=== PATIENT | female | born 1960 | race Caucasian/White ===

== ENCOUNTER 2019-08-25 09:02 | Emergency (ER) | payer BC ==
[~2019-08-25] VITALS: Ht 170.2 cm; Wt 60.0 kg
[~2019-08-25 09:02] MED LIST: ACID1TAB7 PO; LOPE-114 PO; NICO-487 TD
--- NOTE | 2019-08-25 09:20 | NUR ---
PT AMBULATORY WITH SBA TO ROOM FROM AMBULANCE BAY. ALL BELONGINGS REMOVED AND PLACED IN TWO BELONGING BAGS AND INTO SECURE LOCKER. ROOM SECURED, ALL GARAGE DOORS DOWN. PT INITIALLY RESTLESS, PACING ROOM, UNCOOPERATIVE STATING SHE WOULDN'T GET UNDRESSED AND WANTED TO LEAVE. PT REDIRECTED AND INFORMED OF POC/POLICIES R/T REASON FOR VISIT. PT RESISTANT TO TEACHING, SECURITY CALLED. PRIOR TO SECURITY ARRIVING, PT UNDRESSED AND INTO GOWN. PT INITIALLY RESISTANT TO BREATHALYZER WELL BUT COOPERATES AFTER TOLD OF NECESSITY. PT REITERATES WHAT WAS SAID IN TRIAGE. STATES SHE DRINKS A LOT, HX OF PANCREATITIS AND SI BUT CANNOT PROVIDE REASON WHY SUICIDAL TODAY. THIS RN SITTER WITH 1:1 CLOSE OBS.
[2019-08-25 09:26] VITALS: BP 112/75
[2019-08-25 09:42] LABS: ALBUMIN 3.5 g/dL (3.4-5.0); ANION GAP 14 mmol/L (5-15); CALCIUM 7.8 mg/dL (8.5-10.1); CHLORIDE 102 mmol/L (98-107); CREATININE 0.66 mg/dL (0.55-1.02); SALICYLATE LEVEL 2.1 mg/dL (2.8-20.0)
[2019-08-25] MEDS ORDERED: HALOPERIDOL 5 MG/ML ONE (09:43)
--- NOTE | 2019-08-25 09:45 | NUR ---
LABS DRAWN. PT INITALLY REFUSING LAB DRAW, CONSENTS WHEN TOLD OF DR ORDER AND NECESSITY. FOLLOWING LAB DRAW, PT STARTS YELLING AT THIS RN. VERBAL ABUSE WITH NAME CALLING TO THIS RN, PT THREATENING TO LEAVE. AT ONE POINT, PT STATES "I'M GOING TO KILL YOU", "JUST WATCH ME" TO THIS RN. PT PACING ROOM, YELLING, BANGING ON DOOR AND GLASS, TAKING OFF GOWN. PT ATTEMPTING TO LEAVE ROOM, CONFRONTATIONAL AND THREATENING TO STAFF. SECURITY CALLED AND INTERVENES PT TRYING TO LEAVE ER. PT CONTINUES TO SCREAM AND FIGHT SECURITY. ERP NOTIFIED, PT PLACED IN FOUR POINT RESTRAINTS, ORDER FOR HALDOL OBTAINED.
[2019-08-25] MEDS ORDERED: HALOPERIDOL 5 MG/ML IM ONE (10:00)
--- NOTE | 2019-08-25 10:00 | NUR ---
HALDOL GIVEN WITH SECURITY AT BS. PT CONTINUES TO YELL, SWEAR, AND THREATEN STAFF. CONTINUE WITH 1:1 CLOSE OBS.
--- NOTE | 2019-08-25 10:29 | NUR ---
LAB REDRAW. PT COOPERATES WITH DRAW. FOLLOWING LAB DRAW, PT CONTINUES TO SCREAM AND YELL OUT DEMANDS, AND NAME CALLING TOWARD STAFF. PT CONTINUALLY KICKING OR TOSSING OFF BLANKET AND THEN C/O BEING COLD. ADDITIONAL WARM BLANKET PROVIDED, PT COVERED. CONTINUE WITH CLOSE OBS 1:1.
[2019-08-25 10:33] LABS: BASOPHILS # (AUTO) 0.13 x10^3/uL (0-0.1); BASOPHILS % (AUTO) 2 % (0-1); EOSINOPHILS # (AUTO) 0.07 x10^3/uL (0-0.4); EOSINOPHILS % (AUTO) 1 % (1-7); LYMPHOCYTES # (AUTO) 2.37 x10^3/uL (1-3.4); LYMPHOCYTES % (AUTO) 28 % (22-44); MD NO; MEAN CORPUSCULAR HEMOGLOBIN 34.2 pg (27.0-34.8); MEAN CORPUSCULAR HGB CONC 33.9 g/dL (32.4-35.8); MEAN CORPUSCULAR VOLUME 100.8 fL (80-100); MEAN PLATELET VOLUME 8.2 fL (7.4-10.4); MONOCYTES % (AUTO) 7 % (2-9); NEUTROPHILS # (AUTO) 5.28 x10^3/uL (1.8-6.8); NEUTROPHILS % (AUTO) 63 % (42-75); PLATELET COUNT 192 x10^3/uL (130-400); RED BLOOD COUNT 5.26 x10^6/uL (3.82-5.3); RED CELL DISTRIBUTION WIDTH 12.8 % (9.6-15.2)
--- NOTE | 2019-08-25 10:49 | NUR ---
REPORT TO [facility] RN/HUGO AND ELEANOR SAMUEL. TRANSFER OF CARE AT THIS TIME.
--- NOTE | 2019-08-25 10:54 | NUR ---
pt verbalizing that she needs water and to use the bathroom. Offered the bedpan to the patient. pt refused bedpan stating that was "to gross." Water given to pt, pt tolerated water without spitting and no s/s of aspiration. pt demanding her restraints be removed so she can leave, educated pt on reasoning for restraints and that she was a legal hold. pt demanding security be called to remove restraints. Attempted to educate pt again without success. pt being yelling demanding to speak to MD. pt reamins in one on one observation. Restraints unimpeeded. Restraints in place. pt continues to thrash against restraints and yelling.
--- NOTE | 2019-08-25 11:26 | NUR ---
pt continues to pull at restraints and state that she needs to "get these off and get out of here." Attempted to educate pt on the process of the legal hold and reason for restraints with no evidence of learning. pt remains on one on one observation. pt actively completely range of motion independently. Respiration unimpeeded. reamins on legal hold
--- NOTE | 2019-08-25 13:05 | NUR ---
Drug screen obtained and handed to senior cytogenetics laboratory director to be walked to lab. pt now awake and reamins agitated. pt stating she needs to leave the hospital to smoke. pt states that she smokes multiple packs of cigraettes a day. Will inform primary RN to request nicotin patch. pt stated that if the restraints are not removed she "is just going to kill" herself. pt continued to make states such as "I don't care just shoot me" Restraints remain in place. pt actively competing ROM by herself/frequently pulling at the restraints. Respirations are unimeeped. Water given to pt. Patient remains in direct line of sight and is a one on one observation.
[2019-08-25 13:38] LABS: AMPHETAMINE SCREEN, URINE Negative (Negative); BARBITURATE SCREEN, URINE Negative (Negative); BENZODIAZEPINE SCREEN, URINE Negative (Negative); CANNABINOID SCREEN, URINE Negative (Negative); COCAINE SCREEN, URINE Negative (Negative); METHADONE SCREEN, URINE Negative (Negative); OPIATE SCREEN, URINE Negative (Negative)
--- NOTE | 2019-08-25 13:40 | NUR ---
report given to [facility].
--- NOTE | 2019-08-25 14:20 | NUR ---
PT LYING ON GURNEY, REASSESSED RESTRAINTS, NO S/S OF SKIN IRRITATION NOTED AT THIS TIME. PT REPORTS HAVING A BM, PT ABLE TO TURN ON GURNEY, NO SIGNS OF BM NOTED. SITTER REMAINS IN DIRECT VIEW OF PT AT THIS TIME.
--- NOTE | 2019-08-25 14:46 | NUR ---
PT ASSISTED ONTO BEDPAN. PROVIDED W/ WARM WASHCLOTHS. PT REPORTS DOES NOT FEEL SUICIDAL STATED "I WAS JUST REALLY REALLY ANGRY." PT STATED WOULD LIKE RESTRAINTS OFF AND WILL COOPERATE W/ RN. WILL DISCUSS W/ ERP.
--- NOTE | 2019-08-25 14:52 | NUR ---
VERIFIED W/ ERP OKAY TO TAKE RESTRAINTS OFF. DISCUSSED POC W/ PT INCLUDING EXPECTATIONS ONCE RESTRAINTS ARE REMOVED INCLUDING NOT ATTEMPTING TO WALK OUT AND REMAINING CALM AND COOPERATIVE W/ STAFF. PT VERBALIZED UNDERSTANDING. RESTRAINTS REMOVED BY SECURITY. PT THANKED RN, REPSITIONED SELF ON [facility]. PROVIDED W/ LUNCH TRAY. SITTER REMAINS IN DIRECT VIEW OF PT.
--- NOTE | 2019-08-25 15:33 | NUR ---
BREATHYLIZER 0.19
--- NOTE | 2019-08-25 16:23 | NUR ---
PT AMBULATING AROUND ROOM, FREQUENTLY ASKING TO GO HOME. REORIENTED TO NEED TO WAIT UNTIL CLINICALLY SOBER FOR EVAL. PROVIDED W/ WATER. PT FOLLOWING ORDERS AND COOPERATING W/ RN AT THIS TIME. SITTER REMAINS IN DIRECT VIEW OF PT.
[2019-08-25] MEDS ORDERED: NICOTINE 21 MG/24 HR PATCH.TD24 ONE (16:35)
--- NOTE | 2019-08-25 16:41 | NUR ---
NICOTINE PATCH IN PLACE. PT PROVIDED W/ WATER. SITTER REMAINS IN DIRECT VIEW OF PT.
[2019-08-25] MEDS ORDERED: NICOTINE 21 MG/24 HR PATCH.TD24 TD ONE (17:00)
--- NOTE | 2019-08-25 17:58 | NUR ---
PT AWARE OF PENDING DISCHARGE, REMAINS CALM AND COOPERATIVE AT THIS TIME. SITTER REMAINS IN DIRECT VIEW OF PT.
== END 2019-08-25 18:34 | disposition home or self-care (01) ==
LOC: ED 10:02
DX: F10.120 Alcohol abuse with intoxication, uncomplicated (principal); R45.851 Suicidal ideations; J44.9 Chronic obstructive pulmonary disease, unspecified; Y90.0 Blood alcohol level of less than 20 mg/100 ml
CPT/HCPCS: 36415; 80048; 80307; 82040; 85025; 96372; 99284; J1630; 99283

== ENCOUNTER 2019-09-21 14:24 | Emergency (ER) | payer SELFPAY ==
[~2019-09-21] VITALS: Ht 170.2 cm; Wt 52.9 kg
[2019-09-21 14:30] VITALS: BP 95/67
--- NOTE | 2019-09-21 14:44 | NUR ---
pt in bed and in gown. cardiac, nibp and o2 monitoring in place. ekg completed. pt appears to be very anxious and states since she lost her job 1 month ago she has lost track of time. md was in room to eval and pt began to become very anxious and wanted to leave. md assured pt, and encouraged pt to stay for evaluation. pt at this time agrees to poc. vss, and will continue to monitor.
[2019-09-21] MEDS ORDERED: SODIUM CHLORIDE 0.9% 1,000ML IVBOLUS ONE (15:00)
[2019-09-21 15:24] LABS: BASOPHILS # (AUTO) 0.04 x10^3/uL (0-0.1); BASOPHILS % (AUTO) 1 % (0-1); EOSINOPHILS # (AUTO) 0.25 x10^3/uL (0-0.4); EOSINOPHILS % (AUTO) 4 % (1-7); LYMPHOCYTES # (AUTO) 2.94 x10^3/uL (1-3.4); LYMPHOCYTES % (AUTO) 49 % (22-44); MD NO; MEAN CORPUSCULAR HEMOGLOBIN 34.3 pg (27.0-34.8); MEAN CORPUSCULAR HGB CONC 33.7 g/dL (32.4-35.8); MEAN CORPUSCULAR VOLUME 101.9 fL (80-100); MEAN PLATELET VOLUME 8.1 fL (7.4-10.4); MONOCYTES # (AUTO) 0.33 x10^3/uL (0.2-0.8); MONOCYTES % (AUTO) 6 % (2-9); NEUTROPHILS # (AUTO) 2.45 x10^3/uL (1.8-6.8); NEUTROPHILS % (AUTO) 41 % (42-75); PLATELET COUNT 325 x10^3/uL (130-400); RED BLOOD COUNT 4.77 x10^6/uL (3.82-5.3); RED CELL DISTRIBUTION WIDTH 13.2 % (9.6-15.2)
[2019-09-21 15:36] LABS: ALANINE AMINOTRANSFERASE 45 U/L (12-78); ALBUMIN 3.4 g/dL (3.4-5.0); ANION GAP 8 mmol/L (5-15); CALCIUM 8.2 mg/dL (8.5-10.1); CHLORIDE 114 mmol/L (98-107)
[2019-09-21 15:39] LABS: ALKALINE PHOSPHATASE 71 U/L (45-117); BILIRUBIN,TOTAL 0.3 mg/dL (0.2-1.0); CREATININE 0.49 mg/dL (0.55-1.02); TOTAL PROTEIN 6.7 g/dL (6.4-8.2)
== END 2019-09-21 15:16 | disposition left against medical advice (07) ==
LOC: ED 15:05
DX: R05 Cough (principal); R06.02 Shortness of breath; I21.9 Acute myocardial infarction, unspecified; F17.200 Nicotine dependence, unspecified, uncomplicated
CPT/HCPCS: 36415; 71045; 80053; 83735; 85025; 93005; 99285

== ENCOUNTER 2019-11-12 17:28 | Emergency (ER) | payer SELFPAY ==
[~2019-11-12] VITALS: Ht 170.2 cm; Wt 42.0 kg
--- NOTE | 2019-11-12 18:46 | NUR ---
PT RESTING IN [facility]. VSS. NAD.
[2019-11-12] MEDS ORDERED: ALBUTEROL/IPRATROPIUM 2.5MG/0.5MG, 3 ML NPPB ONE (19:00)
[2019-11-12 19:04] LABS: ALBUMIN 2.8 g/dL (3.4-5.0); ANION GAP 11 mmol/L (5-15); CALCIUM 7.4 mg/dL (8.5-10.1); CHLORIDE 108 mmol/L (98-107)
[2019-11-12 19:09] LABS: ALANINE AMINOTRANSFERASE 55 U/L (12-78); ALKALINE PHOSPHATASE 79 U/L (45-117); BILIRUBIN,TOTAL 0.5 mg/dL (0.2-1.0); CREATININE 0.56 mg/dL (0.55-1.02); TOTAL PROTEIN 5.9 g/dL (6.4-8.2); TROPONIN I < 0.015 ng/mL (0.000-0.045)
[2019-11-12] MEDS ORDERED: SODIUM CHLORIDE FLUSH 10ML SYR IVF ONE ×2 (19:30→20:00)
[2019-11-12 19:44] LABS: BASOPHILS # (AUTO) 0.05 x10^3/uL (0-0.1); BASOPHILS % (AUTO) 2 % (0-1); EOSINOPHILS # (AUTO) 0.05 x10^3/uL (0-0.4); EOSINOPHILS % (AUTO) 2 % (1-7); LYMPHOCYTES # (AUTO) 1.57 x10^3/uL (1-3.4); LYMPHOCYTES % (AUTO) 54 % (22-44); MD SCAN; MEAN CORPUSCULAR HGB CONC 34.5 g/dL (32.4-35.8); MEAN CORPUSCULAR VOLUME 98.6 fL (80-100); MEAN PLATELET VOLUME 7.8 fL (7.4-10.4); MONOCYTES # (AUTO) 0.28 x10^3/uL (0.2-0.8); MONOCYTES % (AUTO) 10 % (2-9); NEUTROPHILS # (AUTO) 0.95 x10^3/uL (1.8-6.8); NEUTROPHILS % (AUTO) 33 % (42-75); PLATELET COUNT 78 x10^3/uL (130-400)
[2019-11-12] MEDS ORDERED: SODIUM CHLORIDE 0.9% 1,000ML IVBOLUS ONE (20:00)
[2019-11-12 20:28] VITALS: BP 103/64
--- NOTE | 2019-11-12 20:29 | NUR ---
PT BP IMPROVED AFTER FLUID BOLUS
== END 2019-11-12 21:32 | disposition home or self-care (01) ==
LOC: ED 18:41
DX: J98.01 Acute bronchospasm (principal); R06.00 Dyspnea, unspecified; R05 Cough; R11.2 Nausea with vomiting, unspecified
CPT/HCPCS: 36415; 71045; 80053; 83880; 84484; 85025; 85379; 93005; 94640; 96360; 99285; J7030